=== PATIENT | male | born 1975 | race Caucasian/White ===

== ENCOUNTER 2018-03-29 11:18 | Emergency (ER) | payer SELFPAY | END 2018-03-29 13:20 | disposition home or self-care (01) | LOC: FTE 11:18 | DX: S80.811A Abrasion, right lower leg, initial encounter (principal); W26.8XXA Contact with other sharp object(s), not elsewhere classified, initial encounter; Y92.9 Unspecified place or not applicable | CPT/HCPCS: 73590; 99284-25 ==